=== PATIENT | male | born 1985 | race Caucasian/White ===

== ENCOUNTER 2023-04-05 16:40 | Emergency (ER) | payer SELFPAY ==
[~2023-04-05] VITALS: Ht 177.8 cm; Wt 113.4 kg
[2023-04-05 16:57] VITALS: BP 132/70; PULSE 66; RESP 18; TEMP 97; O2SAT 98
[2023-04-05] MEDS ORDERED: NACL 0.9% 1,000 ML IV ONE (17:20)
[2023-04-05] MEDS ORDERED: ONDANSETRON 4 MG/2 ML VIAL IVP ONE (17:20)
[2023-04-05] MEDS ORDERED: FAMOTIDINE 20 MG/2 ML VIAL IVP ONE (17:20)
[2023-04-05] MEDS ORDERED: KETOROLAC 30 MG/ML VIAL IVP ONE (17:20)
[2023-04-05 17:54] LABS: BASOPHILS % (AUTO) 0.4 % (0.0-2.0); EOSINOPHILS % (AUTO) 0.2 % (0.0-4.0); HEMATOCRIT 41.7 % (36-52); HEMOGLOBIN 13.7 g/dL (12.0-18.0); LYMPHOCYTES # (AUTO) 1.3 K/uL (2.0-11.5); LYMPHOCYTES % (AUTO) 11.8 % (20.5-51.1); MEAN CORPUSCULAR HEMOGLOBIN 27 pg (27-31); MEAN CORPUSCULAR HGB CONC 33 g/dL (33-37); MEAN CORPUSCULAR VOLUME 83.3 fL (80-94); MONOCYTES # (AUTO) 0.3 K/uL (0.8-1.0); MONOCYTES % (AUTO) 3.3 % (1.7-9.3); NEUTROPHILS % (AUTO) 84.3 % (42.2-75.2); PLATELET COUNT (AUTO) 275 K/uL (140-450); RED BLOOD CELL COUNT(AUTO) 5.01 MIL/uL (4.20-6.10); RED CELL DISTRIBUTION WIDTH 16.9 % (11.6-13.7); WHITE BLOOD COUNT (AUTO) 10.6 K/uL (4.8-10.8)
[2023-04-05 18:00] LABS: APPEARANCE,URINE CLEAR (CLEAR); BILIRUBIN,URINE NEGATIVE (NEGATIVE); BLOOD, URINE NEGATIVE (NEGATIVE); COLOR,URINE YELLOW (YELLOW); LEUKOCYTE ESTERASE ,URINE NEGATIVE (NEGATIVE); NITRITE, URINE NEGATIVE (NEGATIVE); PROTEIN,URINE TRACE (NEGATIVE); UGLUCOSE NEGATIVE (NEGATIVE); UROBILINOGEN,URINE 0.2 EU/dL (0.2 - 1)
[2023-04-05 18:03] LABS: ANION GAP 10.7 (8-16); CALCIUM 8.8 mg/dL (8.5-10.1); CARBON DIOXIDE 28.4 mmol/L (21-32); CREATININE 0.9 mg/dL (0.6-1.3); POTASSIUM 4.1 mmol/L (3.5-5.1)
[2023-04-05 18:05] LABS: BACTERIA,URINE 2+ /HPF (None Seen); HYALINE CASTS, URINE 0-10 /LPF (None Seen); MUCUS,URINE 2+ /LPF (None Seen); RBC,URINE 0-5 /HPF (0-5); SQUAMOUS EPITHELIAL CELL,UR 0-3 (FEW) /LPF (0-3 (FEW)); TRICHOMONAS,URINE None Seen /HPF (None Seen); WBC,URINE 0-5 /HPF (0-5); YEAST,URINE None Seen /HPF (None Seen)
[2023-04-05 18:09] LABS: ALBUMIN 3.5 g/dL (3.4-5.0); BILIRUBIN,DIRECT 0.1 mg/dL (0.0-0.3); TOTAL BILIRUBIN 0.4 mg/dL (0.0-1.0); TOTAL PROTEIN, SERUM 9.2 g/dL (6.4-8.2)
[2023-04-05] MEDS ORDERED: OMEP20EC11 PO (19:43)
[2023-04-05 20:00] VITALS: BP 132/70; PULSE 66; RESP 18; TEMP 97; O2SAT 98
[2023-04-06] MEDS ORDERED: FAMO-92 PO (12:13)
== END 2023-04-05 20:00 | disposition home or self-care (01) ==
LOC: MED 16:40
DX: K29.70 Gastritis, unspecified, without bleeding (principal); K76.0 Fatty (change of) liver, not elsewhere classified; Z98.890 Other specified postprocedural states
CPT/HCPCS: 36415; 76705; 80048; 80076; 81001; 83690; 85025; 96361; 96374; 96375; 99285; J1885; J2405; J3490; J7030; Q0092

== ENCOUNTER 2023-04-08 10:28 | Inpatient (IN) | payer MEDICAID, OTHER ==
[~2023-04-08] VITALS: Ht 170.2 cm; Wt 146.1 kg
[~2023-04-08 10:28] MED LIST: FAMO-92 PO; OMEP20EC11 PO
[2023-04-08 10:37] VITALS: BP 136/88; PULSE 131; RESP 20; TEMP 98; O2SAT 100
[2023-04-08] MEDS ORDERED: KETOROLAC 30 MG/ML VIAL IM ONE (11:45)
[2023-04-08 12:22] LABS: EOSINOPHILS % (AUTO) 0.2 % (0.0-4.0); HEMATOCRIT 42.3 % (36-52); HEMOGLOBIN 14.1 g/dL (12.0-18.0); LYMPHOCYTES # (AUTO) 0.4 K/uL (2.0-11.5); LYMPHOCYTES % (AUTO) 3.1 % (20.5-51.1); MEAN CORPUSCULAR HEMOGLOBIN 28 pg (27-31); MEAN CORPUSCULAR HGB CONC 33 g/dL (33-37); MEAN CORPUSCULAR VOLUME 83.5 fL (80-94); MONOCYTES # (AUTO) 0.3 K/uL (0.8-1.0); MONOCYTES % (AUTO) 2.3 % (1.7-9.3); NEUTROPHILS # (AUTO) 12.6 K/uL (1.8-7.7); NEUTROPHILS % (AUTO) 94.4 % (42.2-75.2); PLATELET COUNT (AUTO) 195 K/uL (140-450); RED BLOOD CELL COUNT(AUTO) 5.06 MIL/uL (4.20-6.10); RED CELL DISTRIBUTION WIDTH 16.9 % (11.6-13.7); WHITE BLOOD COUNT (AUTO) 13.3 K/uL (4.8-10.8)
[2023-04-08 12:27] LABS: BILIRUBIN,URINE 2+ (NEGATIVE); BLOOD, URINE TRACE-I (NEGATIVE); COLOR,URINE YELLOW (YELLOW); LEUKOCYTE ESTERASE ,URINE NEGATIVE (NEGATIVE); NITRITE, URINE POSITIVE (NEGATIVE); PH,URINE 5.5 (5.0-9.0); PROTEIN,URINE 3+ (NEGATIVE); UGLUCOSE TRACE (NEGATIVE)
[2023-04-08 12:32] LABS: APPEARANCE,URINE HAZY (CLEAR)
[2023-04-08 12:37] LABS: BACTERIA,URINE 2+ /HPF (None Seen); RBC,URINE 0-5 /HPF (0-5); SQUAMOUS EPITHELIAL CELL,UR 0-3 (FEW) /LPF (0-3 (FEW)); WBC,URINE 0-5 /HPF (0-5)
[2023-04-08 12:41] LABS: CALCIUM 8.6 mg/dL (8.5-10.1); CARBON DIOXIDE 23.3 mmol/L (21-32); CREATININE 1.8 mg/dL (0.6-1.3); HYALINE CASTS, URINE 0-10 /LPF (None Seen)
[2023-04-08 12:42] LABS: ICTOTEST POSITIVE (NEGATIVE)
[2023-04-08 12:51] LABS: LACTIC ACID 4.9 mmol/L (0.4-2.0)
[2023-04-08 12:52] LABS: POTASSIUM 2.3 mmol/L (3.5-5.1)
[2023-04-08] MEDS ORDERED: NACL 0.9% 2,000 ML IV ONE (12:55)
[2023-04-08 12:57] LABS: ALBUMIN 3.1 g/dL (3.4-5.0); BILIRUBIN,DIRECT 0.4 mg/dL (0.0-0.3); TOTAL BILIRUBIN 1.1 mg/dL (0.0-1.0); TOTAL PROTEIN, SERUM 9.7 g/dL (6.4-8.2)
[2023-04-08] MEDS ORDERED: POTASSIUM CHLORIDE 40 MEQ, LIDOCAINE 1% 25 MG in NACL 0.9% 250 ML IV ONE ×3 (13:20→21:05)
[2023-04-08] MEDS ORDERED: PIPERACILLIN/TAZOBACTAM 3.375 GM in DEXTROSE 5% 50 ML IV ONE (13:20)
[2023-04-08 13:51] LABS: FLU A ANTIGEN negative (NEGATIVE); FLU B ANTIGEN negative (NEGATIVE)
[2023-04-08] MEDS ORDERED: PIPERACILLIN/TAZOBACTAM 3.375 GM VIAL IV ONE ×2 (14:09→22:03)
[2023-04-08 14:10] LABS: INR 1.12 (0.8-1.2); PROTHROMBIN TIME 11.7 secs (10.8-13.4)
[2023-04-08] MEDS ORDERED: NACL 0.9% 1,000 ML IV ONE (14:20)
[2023-04-08] MEDS ORDERED: MAG SULF 2000 MG/WATER PREMIX 100 ML IV ONE (14:40)
[2023-04-08] MEDS: LEVOFLOXACIN 750 MG/D5W PREMIX 150 ML IV SCH (16:55)
[2023-04-08] MEDS ORDERED: ONDANSETRON 4 MG/2 ML VIAL IVP PRN (16:55)
[2023-04-08] MEDS ORDERED: POTASSIUM CHL 20 MEQ/NACL 0.9% 1,000 ML IV ONE ×2 (16:55→17:00)
[2023-04-08] MEDS ORDERED: NACL 0.9% 1,000 ML IV SCH (16:55)
[2023-04-08] MEDS ORDERED: ACETAMINOPHEN/CODEINE 300/30MG 1 TAB PO PRN (21:05)
[2023-04-08] MEDS ORDERED: POTASSIUM CHLORIDE 10 MEQ TABER PO ONE (21:05)
[2023-04-08] MEDS ORDERED: MORPHINE SULFATE 2 MG/ML SYR IVP PRN (21:05)
[2023-04-08 21:20] VITALS: PULSE 101; RESP 19; O2SAT 96
[2023-04-08] MEDS: PIPERACILLIN/TAZOBACTAM 3.375 GM in DEXTROSE 5% 50 ML IV SCH (22:12)
[2023-04-09] MEDS ORDERED: KCL 20 MEQ IN 100 mL PREMIX 200 ML IV ONE (02:40)
[2023-04-09] MEDS ORDERED: POTASSIUM CHLORIDE 10 MEQ TABER PO ONE (02:50)
[2023-04-09 04:00] VITALS: BP 108/55; PULSE 78; RESP 20; TEMP 98.4; O2SAT 96
[2023-04-09] MEDS ORDERED: PIPERACILLIN/TAZOBACTAM 3.375 GM VIAL IV ONE ×2 (05:02→12:00)
[2023-04-09] MEDS: PIPERACILLIN/TAZOBACTAM 3.375 GM in DEXTROSE 5% 50 ML IV SCH ×4 (05:42→20:01)
[2023-04-09 06:25] LABS: BASOPHILS % (AUTO) 0.1 % (0.0-2.0); HEMATOCRIT 33.5 % (36-52); HEMOGLOBIN 11.3 g/dL (12.0-18.0); LYMPHOCYTES # (AUTO) 0.5 K/uL (2.0-11.5); LYMPHOCYTES % (AUTO) 5.4 % (20.5-51.1); MEAN CORPUSCULAR HEMOGLOBIN 28 pg (27-31); MEAN CORPUSCULAR HGB CONC 34 g/dL (33-37); MEAN CORPUSCULAR VOLUME 82.6 fL (80-94); MONOCYTES # (AUTO) 0.9 K/uL (0.8-1.0); MONOCYTES % (AUTO) 9.6 % (1.7-9.3); NEUTROPHILS # (AUTO) 8.4 K/uL (1.8-7.7); NEUTROPHILS % (AUTO) 84.9 % (42.2-75.2); PLATELET COUNT (AUTO) 135 K/uL (140-450); RED BLOOD CELL COUNT(AUTO) 4.06 MIL/uL (4.20-6.10); RED CELL DISTRIBUTION WIDTH 16.8 % (11.6-13.7); WHITE BLOOD COUNT (AUTO) 9.9 K/uL (4.8-10.8)
[2023-04-09 06:47] LABS: ALBUMIN 2.1 g/dL (3.4-5.0); ANION GAP 12.9 (8-16); CALCIUM 7.5 mg/dL (8.5-10.1); CARBON DIOXIDE 23.4 mmol/L (21-32); CREATININE 1.2 mg/dL (0.6-1.3); POTASSIUM 3.3 mmol/L (3.5-5.1); TOTAL BILIRUBIN 0.4 mg/dL (0.0-1.0); TOTAL PROTEIN, SERUM 6.9 g/dL (6.4-8.2)
[2023-04-09 08:38] VITALS: BP 119/56; PULSE 91; RESP 19; TEMP 98.6; O2SAT 96
[2023-04-09] MEDS ORDERED: BUPIVACAINE-MPF 0.25% 30 ML VIAL INJ ONE (10:59)
[2023-04-09] MEDS ORDERED: LIDOCAINE/EPI MPF 1%1:200000 30 ML VIAL INJ ONE (10:59)
[2023-04-09] MEDS ORDERED: ceFAZolin 2,000 MG VIAL ONE (10:59)
[2023-04-09] MEDS ORDERED: ONDANSETRON 4 MG/2 ML VIAL IVP ONE (11:38)
[2023-04-09] MEDS ORDERED: SEVOFLURANE 250 ML BTL INH ONE (11:38)
[2023-04-09] MEDS ORDERED: ACETAMINOPHEN 100 ML IV ONE (12:07)
[2023-04-09] MEDS ORDERED: MIDAZOLAM 2 MG/2 ML VIAL ONE (12:10)
[2023-04-09] MEDS ORDERED: LIDOCAINE 2% 100 MG/5 ML SYR IVP ONE (12:11)
[2023-04-09] MEDS ORDERED: fentaNYL citrate 0.05 MG/ML VIAL ONE (12:11)
[2023-04-09] MEDS ORDERED: PROPOFOL 200 MG/20 ML VIAL IV ONE ×2 (12:11→12:34)
[2023-04-09] MEDS ORDERED: ROCURONIUM 50 MG/5 ML VIAL IV ONE (12:11)
[2023-04-09] MEDS ORDERED: SUCCINYLCHOLINE CHLORIDE 200 MG/10 ML VIAL IVP ONE (12:11)
[2023-04-09] MEDS ORDERED: DEXAMETHASONE 4 MG/ML VIAL ONE ×2 (12:24)
[2023-04-09] MEDS ORDERED: GLYCOPYRROLATE 0.2 MG/ML VIAL ONE ×4 (14:04)
[2023-04-09] MEDS ORDERED: NEOSTIGMINE 1:1000 10 MG/10 ML VIAL ONE (14:06)
[2023-04-09] MEDS ORDERED: fentaNYL citrate 0.05 MG/ML VIAL IVP PRN (14:40)
[2023-04-09] MEDS ORDERED: HYDROmorphone 1 MG/ML AMP IVP PRN (14:40)
[2023-04-09] MEDS ORDERED: HYDROmorphone PFS 2 MG/ML SYR ONE (14:52)
[2023-04-09] MEDS: LEVOFLOXACIN 750 MG/D5W PREMIX 150 ML IV SCH (16:06)
[2023-04-09 16:50] VITALS: BP 107/64; PULSE 115; RESP 19; TEMP 97.4; O2SAT 98
[2023-04-09 20:00] VITALS: BP 109/50; PULSE 119; RESP 19; TEMP 98.6; O2SAT 96
[2023-04-09] MEDS ORDERED: MORPHINE SULFATE 2 MG/ML SYR IVP PRN (20:05)
[2023-04-09] MEDS: ACETAMINOPHEN 325 MG TAB PO PRN (20:07)
[2023-04-09] MEDS ORDERED: MORPHINE SULFATE 2 MG/ML SYR IVP ONE (20:10)
[2023-04-09] MEDS ORDERED: PHENAZOPYRIDINE 100 MG TAB PO ONE (21:58)
[2023-04-10] MEDS: HYDROcodone/APAP 5/325 MG 1 TAB TAB PO PRN ×3 (03:13→20:53)
[2023-04-10 04:00] VITALS: BP 125/79; PULSE 109; RESP 21; TEMP 98.8; O2SAT 96
[2023-04-10] MEDS: PIPERACILLIN/TAZOBACTAM 3.375 GM in DEXTROSE 5% 50 ML IV SCH ×3 (04:50→21:46)
[2023-04-10 06:44] LABS: EOSINOPHILS % (AUTO) 0.1 % (0.0-4.0); HEMATOCRIT 25.2 % (36-52); HEMOGLOBIN 8.5 g/dL (12.0-18.0); LYMPHOCYTES # (AUTO) 0.7 K/uL (2.0-11.5); LYMPHOCYTES % (AUTO) 4.2 % (20.5-51.1); MEAN CORPUSCULAR HEMOGLOBIN 28 pg (27-31); MEAN CORPUSCULAR HGB CONC 34 g/dL (33-37); MEAN CORPUSCULAR VOLUME 82.6 fL (80-94); MONOCYTES # (AUTO) 1.3 K/uL (0.8-1.0); MONOCYTES % (AUTO) 8.2 % (1.7-9.3); NEUTROPHILS # (AUTO) 14.2 K/uL (1.8-7.7); NEUTROPHILS % (AUTO) 87.5 % (42.2-75.2); PLATELET COUNT (AUTO) 184 K/uL (140-450); RED BLOOD CELL COUNT(AUTO) 3.05 MIL/uL (4.20-6.10); RED CELL DISTRIBUTION WIDTH 17.5 % (11.6-13.7); WHITE BLOOD COUNT (AUTO) 16.2 K/uL (4.8-10.8)
[2023-04-10 07:10] LABS: ANION GAP 15.1 (8-16); CALCIUM 7.8 mg/dL (8.5-10.1); CARBON DIOXIDE 22.7 mmol/L (21-32); CREATININE 1.2 mg/dL (0.6-1.3); POTASSIUM 3.8 mmol/L (3.5-5.1); TOTAL BILIRUBIN 0.4 mg/dL (0.0-1.0)
[2023-04-10] MEDS ORDERED: NACL 0.9% 500 ML IV SCH ×2 (08:30→09:00)
[2023-04-10] MEDS: PHENAZOPYRIDINE 100 MG TAB PO SCH ×3 (08:56→16:48)
[2023-04-10] MEDS: NACL 0.9% 1,000 ML IV SCH ×2 (08:57→21:50)
[2023-04-10 09:02] VITALS: PULSE 92; RESP 19; O2SAT 94
[2023-04-10 09:03] VITALS: BP 107/56; PULSE 92; RESP 19; TEMP 98.3; O2SAT 94
[2023-04-10 16:18] VITALS: BP 106/62; PULSE 92; RESP 18; TEMP 97.6; O2SAT 96
[2023-04-10] MEDS: LEVOFLOXACIN 750 MG/D5W PREMIX 150 ML IV SCH (16:40)
[2023-04-10 20:00] VITALS: BP 117/69; PULSE 88; PULSE 92; RESP 18; TEMP 98.8; O2SAT 93; O2SAT 96
[2023-04-11] MEDS: NACL 0.9% 1,000 ML IV SCH ×2 (00:12→11:10)
[2023-04-11 04:00] VITALS: BP 109/63; PULSE 83; RESP 18; TEMP 97.9; O2SAT 94
[2023-04-11] MEDS: PIPERACILLIN/TAZOBACTAM 3.375 GM in DEXTROSE 5% 50 ML IV SCH ×2 (05:00→14:42)
[2023-04-11] MEDS: HYDROcodone/APAP 5/325 MG 1 TAB TAB PO PRN ×3 (05:01→20:49)
[2023-04-11 07:11] LABS: LYMPHOCYTES % (AUTO) 6.5 % (20.5-51.1); MEAN CORPUSCULAR HEMOGLOBIN 27 pg (27-31); MEAN CORPUSCULAR HGB CONC 33 g/dL (33-37); MEAN CORPUSCULAR VOLUME 82.7 fL (80-94); MONOCYTES # (AUTO) 1.5 K/uL (0.8-1.0); MONOCYTES % (AUTO) 9.8 % (1.7-9.3); NEUTROPHILS # (AUTO) 12.9 K/uL (1.8-7.7); NEUTROPHILS % (AUTO) 83.7 % (42.2-75.2); PLATELET COUNT (AUTO) 188 K/uL (140-450); RED BLOOD CELL COUNT(AUTO) 2.39 MIL/uL (4.20-6.10); RED CELL DISTRIBUTION WIDTH 18.1 % (11.6-13.7); WHITE BLOOD COUNT (AUTO) 15.4 K/uL (4.8-10.8)
[2023-04-11 07:13] LABS: ANION GAP 8.8 (8-16); CALCIUM 7.8 mg/dL (8.5-10.1); CARBON DIOXIDE 28.9 mmol/L (21-32); CREATININE 0.8 mg/dL (0.6-1.3); POTASSIUM 3.7 mmol/L (3.5-5.1)
[2023-04-11 07:29] LABS: ALBUMIN 1.9 g/dL (3.4-5.0); BILIRUBIN,DIRECT 0.1 mg/dL (0.0-0.3); TOTAL BILIRUBIN 0.2 mg/dL (0.0-1.0); TOTAL PROTEIN, SERUM 6.6 g/dL (6.4-8.2)
[2023-04-11 07:40] LABS: HEMATOCRIT 19.8 % (36-52); HEMOGLOBIN 6.5 g/dL (12.0-18.0)
[2023-04-11 08:00] VITALS: PULSE 76; RESP 20; O2SAT 96
[2023-04-11] MEDS: PHENAZOPYRIDINE 100 MG TAB PO SCH ×3 (08:51→18:11)
[2023-04-11] MEDS ORDERED: ACET-1182 PO (12:15)
[2023-04-11] MEDS ORDERED: CIPR500T4 PO (12:15)
[2023-04-11 16:00] VITALS: BP 118/65; PULSE 81; RESP 20; TEMP 98.3; O2SAT 97
[2023-04-11] MEDS: LEVOFLOXACIN 750 MG/D5W PREMIX 150 ML IV SCH (16:56)
[2023-04-11 20:00] VITALS: BP 121/70; PULSE 84; RESP 16; TEMP 97.8; O2SAT 96; O2SAT 97
[2023-04-12] MEDS ORDERED: cefTRIAXone 1,000 MG VIAL ONE (00:02)
[2023-04-12] MEDS: NACL 0.9% 1,000 ML IV SCH ×2 (05:43→13:50)
[2023-04-12 06:48] LABS: EOSINOPHILS % (AUTO) 0.2 % (0.0-4.0); HEMATOCRIT 21.3 % (36-52); HEMOGLOBIN 7.1 g/dL (12.0-18.0); LYMPHOCYTES # (AUTO) 1.3 K/uL (2.0-11.5); LYMPHOCYTES % (AUTO) 10.9 % (20.5-51.1); MEAN CORPUSCULAR HEMOGLOBIN 28 pg (27-31); MEAN CORPUSCULAR HGB CONC 34 g/dL (33-37); MEAN CORPUSCULAR VOLUME 83.4 fL (80-94); MONOCYTES # (AUTO) 1.5 K/uL (0.8-1.0); MONOCYTES % (AUTO) 11.9 % (1.7-9.3); NEUTROPHILS # (AUTO) 9.5 K/uL (1.8-7.7); PLATELET COUNT (AUTO) 205 K/uL (140-450); RED BLOOD CELL COUNT(AUTO) 2.55 MIL/uL (4.20-6.10); WHITE BLOOD COUNT (AUTO) 12.3 K/uL (4.8-10.8)
[2023-04-12 07:02] LABS: ANION GAP 9.6 (8-16); CALCIUM 7.4 mg/dL (8.5-10.1); CARBON DIOXIDE 29.6 mmol/L (21-32); CREATININE 0.9 mg/dL (0.6-1.3); POTASSIUM 3.2 mmol/L (3.5-5.1)
[2023-04-12 07:05] LABS: ALBUMIN 1.9 g/dL (3.4-5.0); BILIRUBIN,DIRECT 0.1 mg/dL (0.0-0.3); TOTAL BILIRUBIN 0.3 mg/dL (0.0-1.0); TOTAL PROTEIN, SERUM 6.6 g/dL (6.4-8.2)
[2023-04-12] MEDS ORDERED: POTASSIUM CHLORIDE 10 MEQ TABER PO PRN (07:55)
[2023-04-12 08:00] VITALS: BP 125/71; PULSE 78; RESP 17; TEMP 98.2; O2SAT 96
[2023-04-12] MEDS: PHENAZOPYRIDINE 100 MG TAB PO SCH ×3 (09:22→17:42)
[2023-04-12] MEDS: metroNIDAZOLE 500 MG/NS PREMIX 100 ML IV SCH ×2 (13:41→21:20)
[2023-04-12 16:00] VITALS: BP 123/67; PULSE 91; RESP 17; TEMP 99.3; O2SAT 96
[2023-04-12] MEDS: HYDROcodone/APAP 5/325 MG 1 TAB TAB PO PRN (17:45)
[2023-04-12 20:00] VITALS: BP 98/77; PULSE 101; PULSE 111; RESP 17; TEMP 98.2; O2SAT 96
[2023-04-13] MEDS: HYDROcodone/APAP 5/325 MG 1 TAB TAB PO PRN ×2 (00:27→18:13)
[2023-04-13] MEDS: NACL 0.9% 1,000 ML IV SCH ×2 (03:38→16:30)
[2023-04-13 04:22] VITALS: BP 103/60; PULSE 90; RESP 17; TEMP 98.7; O2SAT 96
[2023-04-13] MEDS: metroNIDAZOLE 500 MG/NS PREMIX 100 ML IV SCH ×3 (04:55→21:33)
[2023-04-13 07:02] LABS: ANION GAP 12.1 (8-16); CALCIUM 7.7 mg/dL (8.5-10.1); CARBON DIOXIDE 28.1 mmol/L (21-32); CREATININE 0.9 mg/dL (0.6-1.3); POTASSIUM 3.2 mmol/L (3.5-5.1)
[2023-04-13 07:19] LABS: HEMATOCRIT 23.6 % (36-52); MEAN CORPUSCULAR HEMOGLOBIN 28 pg (27-31); MEAN CORPUSCULAR HGB CONC 34 g/dL (33-37); MEAN CORPUSCULAR VOLUME 83.3 fL (80-94); PLATELET COUNT (AUTO) 358 K/uL (140-450); RED BLOOD CELL COUNT(AUTO) 2.84 MIL/uL (4.20-6.10); RED CELL DISTRIBUTION WIDTH 17.1 % (11.6-13.7); WHITE BLOOD COUNT (AUTO) 15.4 K/uL (4.8-10.8)
[2023-04-13 07:55] LABS: EOSINOPHILS % (MANUAL) 2 % (0-4); MONOCYTES % (MANUAL) 12 % (5-12)
[2023-04-13 07:56] LABS: LYMPHOCYTES % (MANUAL) 17 % (20-46)
[2023-04-13 08:00] VITALS: PULSE 97; RESP 18; TEMP 98.6; O2SAT 98
[2023-04-13 16:00] VITALS: BP 121/65; PULSE 105; RESP 18; TEMP 99; O2SAT 97
[2023-04-13 16:53] LABS: ALBUMIN 2.2 g/dL (3.4-5.0); BILIRUBIN,DIRECT 0.1 mg/dL (0.0-0.3); TOTAL BILIRUBIN 0.4 mg/dL (0.0-1.0); TOTAL PROTEIN, SERUM 6.9 g/dL (6.4-8.2)
[2023-04-13] MEDS ORDERED: POTASSIUM CHLORIDE 10 MEQ TABER PO ONE ×2 (17:40→21:31)
[2023-04-13 20:00] VITALS: BP 108/60; PULSE 111; PULSE 98; RESP 17; TEMP 99.2; O2SAT 96
[2023-04-14 04:00] VITALS: BP 129/61; PULSE 108; RESP 18; TEMP 99; O2SAT 97
[2023-04-14] MEDS: HYDROcodone/APAP 5/325 MG 1 TAB TAB PO PRN ×3 (04:21→20:09)
[2023-04-14] MEDS: metroNIDAZOLE 500 MG/NS PREMIX 100 ML IV SCH ×2 (04:22→13:00)
[2023-04-14] MEDS: NACL 0.9% 1,000 ML IV SCH ×2 (04:22→19:10)
[2023-04-14 06:44] LABS: BASOPHILS % (AUTO) 0.1 % (0.0-2.0); EOSINOPHILS # (AUTO) 0.1 K/uL (0-0.4); EOSINOPHILS % (AUTO) 0.6 % (0.0-4.0); LYMPHOCYTES # (AUTO) 1.4 K/uL (2.0-11.5); LYMPHOCYTES % (AUTO) 10.2 % (20.5-51.1); MEAN CORPUSCULAR HEMOGLOBIN 28 pg (27-31); MEAN CORPUSCULAR HGB CONC 34 g/dL (33-37); MEAN CORPUSCULAR VOLUME 82.7 fL (80-94); MONOCYTES # (AUTO) 1.4 K/uL (0.8-1.0); MONOCYTES % (AUTO) 10.2 % (1.7-9.3); NEUTROPHILS % (AUTO) 78.9 % (42.2-75.2); PLATELET COUNT (AUTO) 373 K/uL (140-450); RED BLOOD CELL COUNT(AUTO) 2.54 MIL/uL (4.20-6.10); RED CELL DISTRIBUTION WIDTH 17.4 % (11.6-13.7); WHITE BLOOD COUNT (AUTO) 13.9 K/uL (4.8-10.8)
[2023-04-14 07:04] LABS: ANION GAP 11.6 (8-16); CALCIUM 7.5 mg/dL (8.5-10.1); CARBON DIOXIDE 29.3 mmol/L (21-32); CREATININE 0.9 mg/dL (0.6-1.3)
[2023-04-14 07:10] LABS: POTASSIUM 2.9 mmol/L (3.5-5.1)
[2023-04-14 07:29] LABS: HEMOGLOBIN 7.1 g/dL (12.0-18.0)
[2023-04-14 08:00] VITALS: PULSE 98; RESP 18; TEMP 99.2; O2SAT 98
[2023-04-14] MEDS ORDERED: POTASSIUM CHLORIDE 40 MEQ, LIDOCAINE 1% 25 MG in NACL 0.9% 250 ML IV SCH (08:00)
[2023-04-14 16:00] VITALS: BP 118/83; PULSE 102; RESP 18; TEMP 99; O2SAT 97
[2023-04-14 20:00] VITALS: BP 126/70; PULSE 114; RESP 18; TEMP 102.9; O2SAT 94
[2023-04-14] MEDS: ACETAMINOPHEN 325 MG TAB PO PRN (22:13)
[2023-04-15] MEDS: HYDROcodone/APAP 5/325 MG 1 TAB TAB PO PRN (02:06)
[2023-04-15 03:56] LABS: BASOPHILS # (AUTO) 0.1 K/uL (0.00-0.22); BASOPHILS % (AUTO) 0.4 % (0.0-2.0); EOSINOPHILS # (AUTO) 0.1 K/uL (0-0.4); EOSINOPHILS % (AUTO) 0.8 % (0.0-4.0); HEMATOCRIT 24.3 % (36-52); HEMOGLOBIN 8.2 g/dL (12.0-18.0); LYMPHOCYTES # (AUTO) 1.4 K/uL (2.0-11.5); LYMPHOCYTES % (AUTO) 10.3 % (20.5-51.1); MEAN CORPUSCULAR HEMOGLOBIN 28 pg (27-31); MEAN CORPUSCULAR HGB CONC 34 g/dL (33-37); MEAN CORPUSCULAR VOLUME 83.6 fL (80-94); MONOCYTES # (AUTO) 1.2 K/uL (0.8-1.0); MONOCYTES % (AUTO) 8.9 % (1.7-9.3); NEUTROPHILS % (AUTO) 79.6 % (42.2-75.2); PLATELET COUNT (AUTO) 431 K/uL (140-450); RED BLOOD CELL COUNT(AUTO) 2.91 MIL/uL (4.20-6.10); RED CELL DISTRIBUTION WIDTH 17.3 % (11.6-13.7); WHITE BLOOD COUNT (AUTO) 13.8 K/uL (4.8-10.8)
[2023-04-15 04:00] VITALS: BP 130/95; PULSE 92; RESP 17; TEMP 98.4; O2SAT 93
[2023-04-15 04:12] LABS: ANION GAP 10.9 (8-16); CALCIUM 7.7 mg/dL (8.5-10.1); CARBON DIOXIDE 30.3 mmol/L (21-32); CREATININE 0.8 mg/dL (0.6-1.3); POTASSIUM 3.2 mmol/L (3.5-5.1)
[2023-04-15] MEDS: metroNIDAZOLE 500 MG/NS PREMIX 100 ML IV SCH (04:23)
[2023-04-15 08:00] VITALS: PULSE 98; RESP 19; TEMP 97.6; O2SAT 97
[2023-04-15] MEDS: NACL 0.9% 1,000 ML IV SCH ×2 (08:30→20:16)
[2023-04-15] MEDS ORDERED: DOCUSATE SODIUM 100 MG GELCAP PO PRN (09:05)
[2023-04-15] MEDS ORDERED: MAG SULF 2000 MG/WATER PREMIX 50 ML IV PRN (09:05)
[2023-04-15] MEDS ORDERED: POTASSIUM CHLORIDE 10 MEQ TABER PO PRN (09:05)
[2023-04-15 10:35] VITALS: O2SAT 97
[2023-04-15] MEDS ORDERED: SULF-58 PO (12:44)
[2023-04-15] MEDS ORDERED: METR-435 PO (12:44)
[2023-04-15 16:00] VITALS: BP 138/79; PULSE 100; RESP 18; TEMP 99.1; O2SAT 96
[2023-04-15 20:00] VITALS: BP 113/63; PULSE 114; RESP 18; RESP 19; TEMP 100.4; O2SAT 97; O2SAT 99
[2023-04-15] MEDS: MORPHINE SULFATE 2 MG/ML SYR IVP PRN (20:16)
[2023-04-15] MEDS: MEROPENEM 1,000 MG in NACL 0.9% 50 ML IV SCH (20:16)
[2023-04-15] MEDS: ACETAMINOPHEN 325 MG TAB PO PRN (20:17)
[2023-04-16 04:00] VITALS: BP 110/50; PULSE 108; RESP 19; TEMP 100.5; O2SAT 92
[2023-04-16] MEDS: ACETAMINOPHEN 325 MG TAB PO PRN (04:05)
[2023-04-16] MEDS: MORPHINE SULFATE 2 MG/ML SYR IVP PRN ×3 (04:05→20:52)
[2023-04-16] MEDS: MEROPENEM 1,000 MG in NACL 0.9% 50 ML IV SCH ×3 (04:05→20:51)
[2023-04-16 07:15] LABS: BASOPHILS % (AUTO) 0.2 % (0.0-2.0); EOSINOPHILS % (AUTO) 0.3 % (0.0-4.0); LYMPHOCYTES # (AUTO) 1.4 K/uL (2.0-11.5); LYMPHOCYTES % (AUTO) 10.2 % (20.5-51.1); MEAN CORPUSCULAR HEMOGLOBIN 28 pg (27-31); MEAN CORPUSCULAR HGB CONC 34 g/dL (33-37); MEAN CORPUSCULAR VOLUME 83.9 fL (80-94); MONOCYTES # (AUTO) 1.2 K/uL (0.8-1.0); MONOCYTES % (AUTO) 8.3 % (1.7-9.3); NEUTROPHILS # (AUTO) 11.3 K/uL (1.8-7.7); PLATELET COUNT (AUTO) 508 K/uL (140-450); RED BLOOD CELL COUNT(AUTO) 2.86 MIL/uL (4.20-6.10); RED CELL DISTRIBUTION WIDTH 17.1 % (11.6-13.7); WHITE BLOOD COUNT (AUTO) 13.9 K/uL (4.8-10.8)
[2023-04-16 07:43] LABS: ANION GAP 10.2 (8-16); CALCIUM 8.1 mg/dL (8.5-10.1); CARBON DIOXIDE 29.5 mmol/L (21-32); CREATININE 0.8 mg/dL (0.6-1.3); POTASSIUM 3.7 mmol/L (3.5-5.1)
[2023-04-16 08:00] VITALS: BP 133/60; PULSE 86; RESP 19; TEMP 98.7; O2SAT 96
[2023-04-16] MEDS: NACL 0.9% 1,000 ML IV SCH (13:09)
[2023-04-16 16:00] VITALS: BP 111/55; PULSE 108; RESP 19; TEMP 99.2; O2SAT 96
[2023-04-16] MEDS: HYDROcodone/APAP 5/325 MG 1 TAB TAB PO PRN (16:18)
[2023-04-16 20:00] VITALS: BP 106/61; PULSE 105; RESP 18; RESP 19; TEMP 99.5; O2SAT 97; O2SAT 99
[2023-04-17] MEDS: NACL 0.9% 1,000 ML IV SCH ×2 (00:30→17:00)
[2023-04-17] MEDS: MEROPENEM 1,000 MG in NACL 0.9% 50 ML IV SCH ×3 (04:35→21:25)
[2023-04-17 08:00] VITALS: BP 118/61; PULSE 97; RESP 19; TEMP 97.3; O2SAT 92
[2023-04-17 09:25] LABS: BASOPHILS % (AUTO) 0.3 % (0.0-2.0); EOSINOPHILS % (AUTO) 0.3 % (0.0-4.0); HEMATOCRIT 24.3 % (36-52); HEMOGLOBIN 8.1 g/dL (12.0-18.0); LYMPHOCYTES # (AUTO) 1.6 K/uL (2.0-11.5); MEAN CORPUSCULAR HEMOGLOBIN 28 pg (27-31); MEAN CORPUSCULAR HGB CONC 33 g/dL (33-37); MEAN CORPUSCULAR VOLUME 83.7 fL (80-94); MONOCYTES # (AUTO) 1.3 K/uL (0.8-1.0); MONOCYTES % (AUTO) 8.9 % (1.7-9.3); NEUTROPHILS # (AUTO) 11.8 K/uL (1.8-7.7); NEUTROPHILS % (AUTO) 79.5 % (42.2-75.2); PLATELET COUNT (AUTO) 562 K/uL (140-450); RED BLOOD CELL COUNT(AUTO) 2.91 MIL/uL (4.20-6.10); RED CELL DISTRIBUTION WIDTH 17.6 % (11.6-13.7); WHITE BLOOD COUNT (AUTO) 14.9 K/uL (4.8-10.8)
[2023-04-17 09:35] LABS: ALBUMIN 1.9 g/dL (3.4-5.0); ANION GAP 11.4 (8-16); CALCIUM 7.6 mg/dL (8.5-10.1); CARBON DIOXIDE 27.4 mmol/L (21-32); CREATININE 0.9 mg/dL (0.6-1.3); POTASSIUM 3.8 mmol/L (3.5-5.1); TOTAL BILIRUBIN 0.9 mg/dL (0.0-1.0); TOTAL PROTEIN, SERUM 7.7 g/dL (6.4-8.2)
[2023-04-17 09:43] LABS: INR 1.13 (0.8-1.2); PARTIAL THROMBOPLASTIN TIME 26.7 secs (22-35.6); PROTHROMBIN TIME 11.8 secs (10.8-13.4)
[2023-04-17] MEDS: MORPHINE SULFATE 2 MG/ML SYR IVP PRN ×2 (12:39→21:27)
[2023-04-17] MEDS ORDERED: FLUMAZENIL 0.5 MG/5 ML VIAL IVP ONE (13:13)
[2023-04-17] MEDS ORDERED: MIDAZOLAM 5 MG/5 ML VIAL ONE (13:14)
[2023-04-17] MEDS ORDERED: NALOXONE 0.4 MG/ML VIAL ONE (13:14)
[2023-04-17] MEDS ORDERED: fentaNYL citrate 0.05 MG/ML VIAL ONE (13:14)
[2023-04-17] MEDS ORDERED: LIDOCAINE 1% 500 MG/50 ML VIAL ONE (13:49)
[2023-04-17 16:00] VITALS: BP 111/52; PULSE 109; RESP 20; TEMP 98.6; O2SAT 95
[2023-04-17 20:00] VITALS: BP 116/51; PULSE 110; RESP 19; TEMP 100.8; O2SAT 97
[2023-04-17] MEDS: ACETAMINOPHEN 325 MG TAB PO PRN (21:25)
[2023-04-18] MEDS: NACL 0.9% 1,000 ML IV SCH ×2 (03:10→16:33)
[2023-04-18 05:09] VITALS: BP 108/64; PULSE 100; RESP 19; TEMP 98.3; O2SAT 97
[2023-04-18] MEDS: MEROPENEM 1,000 MG in NACL 0.9% 50 ML IV SCH ×3 (05:22→21:14)
[2023-04-18 06:59] LABS: BASOPHILS % (AUTO) 0.3 % (0.0-2.0); EOSINOPHILS # (AUTO) 0.1 K/uL (0-0.4); EOSINOPHILS % (AUTO) 0.5 % (0.0-4.0); HEMATOCRIT 24.1 % (36-52); LYMPHOCYTES # (AUTO) 1.3 K/uL (2.0-11.5); LYMPHOCYTES % (AUTO) 10.9 % (20.5-51.1); MEAN CORPUSCULAR HEMOGLOBIN 28 pg (27-31); MEAN CORPUSCULAR HGB CONC 33 g/dL (33-37); MEAN CORPUSCULAR VOLUME 83.6 fL (80-94); MONOCYTES # (AUTO) 1.1 K/uL (0.8-1.0); MONOCYTES % (AUTO) 9.5 % (1.7-9.3); NEUTROPHILS # (AUTO) 9.6 K/uL (1.8-7.7); NEUTROPHILS % (AUTO) 78.8 % (42.2-75.2); PLATELET COUNT (AUTO) 590 K/uL (140-450); RED BLOOD CELL COUNT(AUTO) 2.88 MIL/uL (4.20-6.10); RED CELL DISTRIBUTION WIDTH 17.2 % (11.6-13.7); WHITE BLOOD COUNT (AUTO) 12.1 K/uL (4.8-10.8)
[2023-04-18 07:09] LABS: ALBUMIN 1.9 g/dL (3.4-5.0); ANION GAP 10.3 (8-16); CALCIUM 7.9 mg/dL (8.5-10.1); CARBON DIOXIDE 27.8 mmol/L (21-32); CREATININE 0.9 mg/dL (0.6-1.3); POTASSIUM 4.1 mmol/L (3.5-5.1); TOTAL BILIRUBIN 0.9 mg/dL (0.0-1.0); TOTAL PROTEIN, SERUM 8.1 g/dL (6.4-8.2)
[2023-04-18 08:00] VITALS: PULSE 92; RESP 18; TEMP 100.8; O2SAT 96
[2023-04-18 16:00] VITALS: BP 127/66; PULSE 99; RESP 18; TEMP 98.8; O2SAT 96
[2023-04-18 20:00] VITALS: BP 128/66; PULSE 89; RESP 16; RESP 18; TEMP 98.8; TEMP 99.4; O2SAT 97
[2023-04-18] MEDS: MORPHINE SULFATE 2 MG/ML SYR IVP PRN (21:07)
[2023-04-18] MEDS: ONDANSETRON 4 MG/2 ML VIAL IVP PRN (21:14)
[2023-04-18] MEDS: ACETAMINOPHEN 325 MG TAB PO PRN (21:15)
[2023-04-19] MEDS: MEROPENEM 1,000 MG in NACL 0.9% 50 ML IV SCH ×3 (05:28→20:07)
[2023-04-19] MEDS: NACL 0.9% 1,000 ML IV SCH ×2 (05:50→19:10)
[2023-04-19] MEDS: ONDANSETRON 4 MG/2 ML VIAL IVP PRN (05:56)
[2023-04-19] MEDS: MORPHINE SULFATE 2 MG/ML SYR IVP PRN ×2 (05:56→21:06)
[2023-04-19 06:43] LABS: BASOPHILS # (AUTO) 0.1 K/uL (0.00-0.22); BASOPHILS % (AUTO) 0.5 % (0.0-2.0); EOSINOPHILS # (AUTO) 0.1 K/uL (0-0.4); EOSINOPHILS % (AUTO) 0.6 % (0.0-4.0); HEMATOCRIT 25.2 % (36-52); HEMOGLOBIN 8.3 g/dL (12.0-18.0); LYMPHOCYTES # (AUTO) 1.6 K/uL (2.0-11.5); LYMPHOCYTES % (AUTO) 13.2 % (20.5-51.1); MEAN CORPUSCULAR HEMOGLOBIN 28 pg (27-31); MEAN CORPUSCULAR HGB CONC 33 g/dL (33-37); MEAN CORPUSCULAR VOLUME 83.7 fL (80-94); MONOCYTES # (AUTO) 1.2 K/uL (0.8-1.0); MONOCYTES % (AUTO) 10.3 % (1.7-9.3); NEUTROPHILS % (AUTO) 75.4 % (42.2-75.2); PLATELET COUNT (AUTO) 605 K/uL (140-450); RED BLOOD CELL COUNT(AUTO) 3.01 MIL/uL (4.20-6.10); RED CELL DISTRIBUTION WIDTH 17.4 % (11.6-13.7)
[2023-04-19 07:38] LABS: ALBUMIN 1.9 g/dL (3.4-5.0); ANION GAP 11.2 (8-16); CALCIUM 8.2 mg/dL (8.5-10.1); CARBON DIOXIDE 27.5 mmol/L (21-32); CREATININE 0.9 mg/dL (0.6-1.3); POTASSIUM 4.7 mmol/L (3.5-5.1); TOTAL BILIRUBIN 0.9 mg/dL (0.0-1.0); TOTAL PROTEIN, SERUM 8.5 g/dL (6.4-8.2)
[2023-04-19 08:00] VITALS: BP 118/50; PULSE 90; RESP 19; TEMP 99.3; O2SAT 93; O2SAT 97
[2023-04-19 16:00] VITALS: BP 102/54; PULSE 117; RESP 21; TEMP 100.8; O2SAT 96
[2023-04-19] MEDS: ACETAMINOPHEN 325 MG TAB PO PRN (16:18)
[2023-04-19 20:00] VITALS: BP 110/55; PULSE 102; RESP 18; RESP 19; TEMP 98.4; TEMP 98.9; O2SAT 96
[2023-04-19] MEDS ORDERED: NEOMYCIN/POLYMYXIN/BACITRACIN OIN 15 GM TUBE TP SCH (21:00)
[2023-04-19] MEDS ORDERED: NEOMYCIN/POLYMYXIN/BACITRACIN 0.9 GM/1 PKT TP ONE (21:23)
[2023-04-20] MEDS ORDERED: NEOMYCIN/POLYMYXIN/BACITRACIN OPTH OINT 3.5 GM TUBE OP SCH (01:00)
[2023-04-20] MEDS: ACETAMINOPHEN 325 MG TAB PO PRN (01:11)
[2023-04-20 04:00] VITALS: BP 112/67; PULSE 88; RESP 18; TEMP 98.1; O2SAT 97
[2023-04-20] MEDS: MEROPENEM 1,000 MG in NACL 0.9% 50 ML IV SCH ×3 (04:57→20:07)
[2023-04-20 06:40] LABS: BASOPHILS # (AUTO) 0.1 K/uL (0.00-0.22); BASOPHILS % (AUTO) 1.2 % (0.0-2.0); EOSINOPHILS # (AUTO) 0.1 K/uL (0-0.4); EOSINOPHILS % (AUTO) 0.7 % (0.0-4.0); HEMATOCRIT 24.5 % (36-52); LYMPHOCYTES # (AUTO) 1.5 K/uL (2.0-11.5); LYMPHOCYTES % (AUTO) 13.1 % (20.5-51.1); MEAN CORPUSCULAR HEMOGLOBIN 28 pg (27-31); MEAN CORPUSCULAR HGB CONC 33 g/dL (33-37); MEAN CORPUSCULAR VOLUME 84.3 fL (80-94); MONOCYTES # (AUTO) 1.3 K/uL (0.8-1.0); MONOCYTES % (AUTO) 10.9 % (1.7-9.3); NEUTROPHILS # (AUTO) 8.7 K/uL (1.8-7.7); NEUTROPHILS % (AUTO) 74.1 % (42.2-75.2); PLATELET COUNT (AUTO) 612 K/uL (140-450); RED CELL DISTRIBUTION WIDTH 17.3 % (11.6-13.7); WHITE BLOOD COUNT (AUTO) 11.8 K/uL (4.8-10.8)
[2023-04-20 07:12] LABS: CALCIUM 8.2 mg/dL (8.5-10.1); CARBON DIOXIDE 27.3 mmol/L (21-32); CREATININE 0.9 mg/dL (0.6-1.3); POTASSIUM 4.3 mmol/L (3.5-5.1); TOTAL BILIRUBIN 0.8 mg/dL (0.0-1.0); TOTAL PROTEIN, SERUM 8.6 g/dL (6.4-8.2)
[2023-04-20 08:00] VITALS: BP 116/66; PULSE 95; RESP 19; TEMP 98.6; O2SAT 96
[2023-04-20] MEDS: NACL 0.9% 1,000 ML IV SCH ×2 (08:30→17:31)
[2023-04-20] MEDS: NEOMYCIN/POLYMYXIN/BACITRACIN 0.9 GM/1 PKT TP SCH ×2 (10:10→20:08)
[2023-04-20 16:00] VITALS: BP 108/52; PULSE 110; RESP 21; TEMP 99.2; O2SAT 98
[2023-04-20] MEDS: MORPHINE SULFATE 2 MG/ML SYR IVP PRN (17:55)
[2023-04-20 20:00] VITALS: BP 105/54; PULSE 109; RESP 19; TEMP 99.5; O2SAT 95
[2023-04-21] MEDS: MORPHINE SULFATE 2 MG/ML SYR IVP PRN ×3 (01:17→23:16)
[2023-04-21] MEDS: MEROPENEM 1,000 MG in NACL 0.9% 50 ML IV SCH ×3 (05:05→21:29)
[2023-04-21 07:13] LABS: ANION GAP 9.5 (8-16); CALCIUM 8.5 mg/dL (8.5-10.1); CARBON DIOXIDE 28.8 mmol/L (21-32); CREATININE 0.7 mg/dL (0.6-1.3); POTASSIUM 4.3 mmol/L (3.5-5.1); TOTAL BILIRUBIN 0.8 mg/dL (0.0-1.0); TOTAL PROTEIN, SERUM 7.9 g/dL (6.4-8.2)
[2023-04-21 08:00] VITALS: BP 114/67; PULSE 91; RESP 18; RESP 21; TEMP 87.9; TEMP 96.8; O2SAT 97; O2SAT 98
[2023-04-21 09:07] LABS: BASOPHILS # (AUTO) 0.1 K/uL (0.00-0.22); BASOPHILS % (AUTO) 1.2 % (0.0-2.0); EOSINOPHILS % (AUTO) 0.3 % (0.0-4.0); HEMATOCRIT 25.2 % (36-52); HEMOGLOBIN 8.3 g/dL (12.0-18.0); LYMPHOCYTES # (AUTO) 1.7 K/uL (2.0-11.5); LYMPHOCYTES % (AUTO) 15.3 % (20.5-51.1); MEAN CORPUSCULAR HEMOGLOBIN 28 pg (27-31); MEAN CORPUSCULAR HGB CONC 33 g/dL (33-37); MEAN CORPUSCULAR VOLUME 84.3 fL (80-94); MONOCYTES # (AUTO) 1.2 K/uL (0.8-1.0); MONOCYTES % (AUTO) 10.3 % (1.7-9.3); NEUTROPHILS # (AUTO) 8.2 K/uL (1.8-7.7); NEUTROPHILS % (AUTO) 72.9 % (42.2-75.2); PLATELET COUNT (AUTO) 648 K/uL (140-450); RED BLOOD CELL COUNT(AUTO) 2.99 MIL/uL (4.20-6.10); RED CELL DISTRIBUTION WIDTH 17.6 % (11.6-13.7); WHITE BLOOD COUNT (AUTO) 11.3 K/uL (4.8-10.8)
[2023-04-21] MEDS: NEOMYCIN/POLYMYXIN/BACITRACIN 0.9 GM/1 PKT TP SCH ×2 (09:38→21:30)
[2023-04-21] MEDS: NACL 0.9% 1,000 ML IV SCH (11:10)
[2023-04-21 15:55] VITALS: O2SAT 96
[2023-04-21 16:00] VITALS: BP 114/67; PULSE 91; RESP 18; TEMP 87.9; O2SAT 96
[2023-04-21 20:00] VITALS: BP 111/47; PULSE 102; RESP 18; TEMP 96.5; O2SAT 94
[2023-04-22] MEDS: NACL 0.9% 1,000 ML IV SCH ×2 (00:30→03:27)
[2023-04-22 04:00] VITALS: BP 107/60; PULSE 90; RESP 18; TEMP 96.5; O2SAT 94
[2023-04-22] MEDS: MEROPENEM 1,000 MG in NACL 0.9% 50 ML IV SCH ×3 (04:48→20:49)
[2023-04-22 08:00] VITALS: RESP 18; TEMP 96.8; O2SAT 97
[2023-04-22 08:15] LABS: BASOPHILS # (AUTO) 0.1 K/uL (0.00-0.22); EOSINOPHILS # (AUTO) 0.1 K/uL (0-0.4); EOSINOPHILS % (AUTO) 0.9 % (0.0-4.0); HEMATOCRIT 29.1 % (36-52); HEMOGLOBIN 9.6 g/dL (12.0-18.0); LYMPHOCYTES # (AUTO) 1.3 K/uL (2.0-11.5); LYMPHOCYTES % (AUTO) 13.3 % (20.5-51.1); MEAN CORPUSCULAR HEMOGLOBIN 28 pg (27-31); MEAN CORPUSCULAR HGB CONC 33 g/dL (33-37); MEAN CORPUSCULAR VOLUME 83.8 fL (80-94); MONOCYTES # (AUTO) 0.9 K/uL (0.8-1.0); MONOCYTES % (AUTO) 9.2 % (1.7-9.3); NEUTROPHILS # (AUTO) 7.5 K/uL (1.8-7.7); NEUTROPHILS % (AUTO) 75.6 % (42.2-75.2); PLATELET COUNT (AUTO) 751 K/uL (140-450); RED BLOOD CELL COUNT(AUTO) 3.47 MIL/uL (4.20-6.10); RED CELL DISTRIBUTION WIDTH 17.1 % (11.6-13.7); WHITE BLOOD COUNT (AUTO) 9.9 K/uL (4.8-10.8)
[2023-04-22 08:38] LABS: ALBUMIN 2.3 g/dL (3.4-5.0); ANION GAP 10.8 (8-16); CALCIUM 8.5 mg/dL (8.5-10.1); CARBON DIOXIDE 30.4 mmol/L (21-32); CREATININE 0.9 mg/dL (0.6-1.3); POTASSIUM 4.2 mmol/L (3.5-5.1); TOTAL PROTEIN, SERUM 9.9 g/dL (6.4-8.2)
[2023-04-22] MEDS: NEOMYCIN/POLYMYXIN/BACITRACIN 0.9 GM/1 PKT TP SCH ×2 (10:32→20:51)
[2023-04-22 16:00] VITALS: BP 106/60; PULSE 63; RESP 18; TEMP 97.9; O2SAT 97
[2023-04-22 20:00] VITALS: BP 110/63; PULSE 110; RESP 18; TEMP 98; O2SAT 95
[2023-04-23] MEDS: MORPHINE SULFATE 2 MG/ML SYR IVP PRN ×2 (00:11→20:34)
[2023-04-23] MEDS: NACL 0.9% 1,000 ML IV SCH ×2 (03:10→06:19)
[2023-04-23 04:00] VITALS: BP 129/71; PULSE 99; RESP 18; TEMP 98.2; O2SAT 94
[2023-04-23] MEDS: MEROPENEM 1,000 MG in NACL 0.9% 50 ML IV SCH ×3 (04:43→20:23)
[2023-04-23 07:24] LABS: BASOPHILS # (AUTO) 0.1 K/uL (0.00-0.22); BASOPHILS % (AUTO) 1.1 % (0.0-2.0); EOSINOPHILS # (AUTO) 0.1 K/uL (0-0.4); EOSINOPHILS % (AUTO) 1.1 % (0.0-4.0); HEMATOCRIT 27.2 % (36-52); HEMOGLOBIN 9.2 g/dL (12.0-18.0); LYMPHOCYTES # (AUTO) 1.5 K/uL (2.0-11.5); LYMPHOCYTES % (AUTO) 17.5 % (20.5-51.1); MEAN CORPUSCULAR HEMOGLOBIN 28 pg (27-31); MEAN CORPUSCULAR HGB CONC 34 g/dL (33-37); MEAN CORPUSCULAR VOLUME 83.4 fL (80-94); MONOCYTES # (AUTO) 0.8 K/uL (0.8-1.0); MONOCYTES % (AUTO) 9.1 % (1.7-9.3); NEUTROPHILS # (AUTO) 5.9 K/uL (1.8-7.7); NEUTROPHILS % (AUTO) 71.2 % (42.2-75.2); PLATELET COUNT (AUTO) 682 K/uL (140-450); RED BLOOD CELL COUNT(AUTO) 3.26 MIL/uL (4.20-6.10); RED CELL DISTRIBUTION WIDTH 17.3 % (11.6-13.7); WHITE BLOOD COUNT (AUTO) 8.3 K/uL (4.8-10.8)
[2023-04-23 07:56] LABS: ANION GAP 12.3 (8-16); CALCIUM 8.7 mg/dL (8.5-10.1); CARBON DIOXIDE 28.8 mmol/L (21-32); CREATININE 0.8 mg/dL (0.6-1.3); POTASSIUM 4.1 mmol/L (3.5-5.1)
[2023-04-23 08:05] LABS: ALBUMIN 2.3 g/dL (3.4-5.0); TOTAL PROTEIN, SERUM 8.8 g/dL (6.4-8.2)
[2023-04-23] MEDS: NEOMYCIN/POLYMYXIN/BACITRACIN 0.9 GM/1 PKT TP SCH ×2 (08:26→20:33)
[2023-04-23 08:58] VITALS: PULSE 98; RESP 16; O2SAT 97
[2023-04-23 08:59] VITALS: BP 116/53; PULSE 98; RESP 16; TEMP 98.7; O2SAT 98
[2023-04-23 10:43] LABS: TOTAL BILIRUBIN 0.9 mg/dL (0.0-1.0)
[2023-04-23 17:05] VITALS: BP 104/60; PULSE 96; RESP 16; TEMP 98.9; O2SAT 97
[2023-04-23 20:00] VITALS: BP 111/59; PULSE 98; RESP 18; TEMP 98; O2SAT 94
[2023-04-24] MEDS: NACL 0.9% 1,000 ML IV SCH ×2 (01:51→19:10)
[2023-04-24] MEDS: MEROPENEM 1,000 MG in NACL 0.9% 50 ML IV SCH ×3 (04:41→22:30)
[2023-04-24 06:11] LABS: BASOPHILS # (AUTO) 0.1 K/uL (0.00-0.22); BASOPHILS % (AUTO) 0.7 % (0.0-2.0); EOSINOPHILS # (AUTO) 0.1 K/uL (0-0.4); EOSINOPHILS % (AUTO) 0.9 % (0.0-4.0); HEMATOCRIT 25.2 % (36-52); HEMOGLOBIN 8.3 g/dL (12.0-18.0); LYMPHOCYTES # (AUTO) 1.5 K/uL (2.0-11.5); LYMPHOCYTES % (AUTO) 20.2 % (20.5-51.1); MEAN CORPUSCULAR HEMOGLOBIN 27 pg (27-31); MEAN CORPUSCULAR HGB CONC 33 g/dL (33-37); MEAN CORPUSCULAR VOLUME 82.8 fL (80-94); MONOCYTES # (AUTO) 0.7 K/uL (0.8-1.0); MONOCYTES % (AUTO) 9.9 % (1.7-9.3); NEUTROPHILS # (AUTO) 4.9 K/uL (1.8-7.7); NEUTROPHILS % (AUTO) 68.3 % (42.2-75.2); PLATELET COUNT (AUTO) 560 K/uL (140-450); RED BLOOD CELL COUNT(AUTO) 3.04 MIL/uL (4.20-6.10); RED CELL DISTRIBUTION WIDTH 17.3 % (11.6-13.7); WHITE BLOOD COUNT (AUTO) 7.2 K/uL (4.8-10.8)
[2023-04-24 07:06] LABS: ALBUMIN 1.9 g/dL (3.4-5.0); ANION GAP 11.3 (8-16); CALCIUM 8.1 mg/dL (8.5-10.1); CARBON DIOXIDE 28.7 mmol/L (21-32); TOTAL BILIRUBIN 0.8 mg/dL (0.0-1.0); TOTAL PROTEIN, SERUM 8.5 g/dL (6.4-8.2)
[2023-04-24 08:00] VITALS: BP 116/58; PULSE 80; RESP 18; TEMP 97.6; O2SAT 97
[2023-04-24] MEDS: NEOMYCIN/POLYMYXIN/BACITRACIN 0.9 GM/1 PKT TP SCH ×2 (10:50→22:21)
[2023-04-24 16:00] VITALS: BP 108/61; PULSE 94; RESP 18; TEMP 99.7; O2SAT 99
[2023-04-24 20:00] VITALS: PULSE 103; RESP 18; TEMP 98.6; O2SAT 94
[2023-04-24 22:37] VITALS: BP 115/63; PULSE 98; RESP 18; TEMP 98.7; O2SAT 93
[2023-04-24] MEDS: MORPHINE SULFATE 2 MG/ML SYR IVP PRN (22:41)
[2023-04-25] MEDS: NACL 0.9% 1,000 ML IV SCH ×3 (04:52→21:41)
[2023-04-25] MEDS: MEROPENEM 1,000 MG in NACL 0.9% 50 ML IV SCH ×3 (04:52→20:37)
[2023-04-25 07:20] LABS: BASOPHILS # (AUTO) 0.1 K/uL (0.00-0.22); EOSINOPHILS # (AUTO) 0.1 K/uL (0-0.4); HEMOGLOBIN 8.5 g/dL (12.0-18.0); LYMPHOCYTES # (AUTO) 1.4 K/uL (2.0-11.5); LYMPHOCYTES % (AUTO) 22.2 % (20.5-51.1); MEAN CORPUSCULAR HEMOGLOBIN 27 pg (27-31); MEAN CORPUSCULAR HGB CONC 33 g/dL (33-37); MONOCYTES # (AUTO) 0.7 K/uL (0.8-1.0); MONOCYTES % (AUTO) 11.7 % (1.7-9.3); NEUTROPHILS # (AUTO) 4.1 K/uL (1.8-7.7); NEUTROPHILS % (AUTO) 63.1 % (42.2-75.2); PLATELET COUNT (AUTO) 525 K/uL (140-450); RED BLOOD CELL COUNT(AUTO) 3.13 MIL/uL (4.20-6.10); RED CELL DISTRIBUTION WIDTH 17.3 % (11.6-13.7); WHITE BLOOD COUNT (AUTO) 6.4 K/uL (4.8-10.8)
[2023-04-25 07:39] LABS: ANION GAP 11.7 (8-16); CALCIUM 8.4 mg/dL (8.5-10.1); CARBON DIOXIDE 29.7 mmol/L (21-32); CREATININE 0.8 mg/dL (0.6-1.3); POTASSIUM 4.4 mmol/L (3.5-5.1); TOTAL BILIRUBIN 0.7 mg/dL (0.0-1.0); TOTAL PROTEIN, SERUM 8.1 g/dL (6.4-8.2)
[2023-04-25 08:00] VITALS: BP 151/57; PULSE 65; RESP 18; RESP 19; TEMP 98.3; TEMP 98.5; O2SAT 95
[2023-04-25] MEDS: NEOMYCIN/POLYMYXIN/BACITRACIN 0.9 GM/1 PKT TP SCH ×2 (10:51→20:37)
[2023-04-25] MEDS: MORPHINE SULFATE 2 MG/ML SYR IVP PRN ×2 (15:01→20:46)
[2023-04-25 16:00] VITALS: BP 127/63; PULSE 81; RESP 18; TEMP 98.4; O2SAT 96
[2023-04-25 20:00] VITALS: BP 110/69; PULSE 106; PULSE 81; RESP 19; TEMP 99.6; O2SAT 94; O2SAT 96
[2023-04-25] MEDS: ACETAMINOPHEN 325 MG TAB PO PRN (20:37)
[2023-04-26] MEDS: MORPHINE SULFATE 2 MG/ML SYR IVP PRN ×3 (03:27→21:36)
[2023-04-26 04:00] VITALS: BP 126/70; PULSE 93; RESP 21; TEMP 98.2; O2SAT 96
[2023-04-26] MEDS: MEROPENEM 1,000 MG in NACL 0.9% 50 ML IV SCH ×3 (04:40→21:24)
[2023-04-26 06:59] LABS: BASOPHILS # (AUTO) 0.1 K/uL (0.00-0.22); BASOPHILS % (AUTO) 0.8 % (0.0-2.0); EOSINOPHILS # (AUTO) 0.1 K/uL (0-0.4); EOSINOPHILS % (AUTO) 1.9 % (0.0-4.0); HEMATOCRIT 27.3 % (36-52); HEMOGLOBIN 8.8 g/dL (12.0-18.0); LYMPHOCYTES # (AUTO) 1.2 K/uL (2.0-11.5); LYMPHOCYTES % (AUTO) 18.9 % (20.5-51.1); MEAN CORPUSCULAR HEMOGLOBIN 27 pg (27-31); MEAN CORPUSCULAR HGB CONC 32 g/dL (33-37); MEAN CORPUSCULAR VOLUME 82.2 fL (80-94); MONOCYTES # (AUTO) 0.6 K/uL (0.8-1.0); MONOCYTES % (AUTO) 9.7 % (1.7-9.3); NEUTROPHILS # (AUTO) 4.4 K/uL (1.8-7.7); NEUTROPHILS % (AUTO) 68.7 % (42.2-75.2); PLATELET COUNT (AUTO) 510 K/uL (140-450); RED BLOOD CELL COUNT(AUTO) 3.32 MIL/uL (4.20-6.10); RED CELL DISTRIBUTION WIDTH 17.5 % (11.6-13.7); WHITE BLOOD COUNT (AUTO) 6.4 K/uL (4.8-10.8)
[2023-04-26 07:00] LABS: CALCIUM 8.2 mg/dL (8.5-10.1); CARBON DIOXIDE 31.3 mmol/L (21-32); CREATININE 0.9 mg/dL (0.6-1.3); POTASSIUM 4.3 mmol/L (3.5-5.1); TOTAL BILIRUBIN 0.6 mg/dL (0.0-1.0)
[2023-04-26 08:00] VITALS: BP 110/64; PULSE 20; PULSE 87; RESP 20; TEMP 97.3; O2SAT 96
[2023-04-26] MEDS: NEOMYCIN/POLYMYXIN/BACITRACIN 0.9 GM/1 PKT TP SCH ×2 (09:26→21:25)
[2023-04-26 16:00] VITALS: BP 125/68; PULSE 20; RESP 20; TEMP 97.3; O2SAT 97
[2023-04-26] MEDS: NACL 0.9% 1,000 ML IV SCH (16:37)
[2023-04-26 20:00] VITALS: BP 119/71; PULSE 87; PULSE 93; RESP 18; TEMP 98.5; TEMP 98.9; O2SAT 93
[2023-04-27] MEDS: NACL 0.9% 1,000 ML IV SCH ×2 (00:30→12:51)
[2023-04-27 04:00] VITALS: BP 119/67; PULSE 89; RESP 18; TEMP 97.2; O2SAT 93
[2023-04-27] MEDS: MEROPENEM 1,000 MG in NACL 0.9% 50 ML IV SCH ×3 (05:02→22:35)
[2023-04-27] MEDS: MORPHINE SULFATE 2 MG/ML SYR IVP PRN ×2 (05:16→23:01)
[2023-04-27 07:07] LABS: CALCIUM 8.1 mg/dL (8.5-10.1); CARBON DIOXIDE 28.9 mmol/L (21-32); CREATININE 0.9 mg/dL (0.6-1.3); POTASSIUM 3.9 mmol/L (3.5-5.1); TOTAL BILIRUBIN 0.6 mg/dL (0.0-1.0); TOTAL PROTEIN, SERUM 8.8 g/dL (6.4-8.2)
[2023-04-27 08:00] VITALS: BP 112/66; PULSE 83; PULSE 87; RESP 18; RESP 20; TEMP 97.2; TEMP 97.3; O2SAT 83; O2SAT 96
[2023-04-27 08:10] LABS: BASOPHILS # (AUTO) 0.1 K/uL (0.00-0.22); BASOPHILS % (AUTO) 0.8 % (0.0-2.0); EOSINOPHILS # (AUTO) 0.1 K/uL (0-0.4); EOSINOPHILS % (AUTO) 2.1 % (0.0-4.0); HEMATOCRIT 26.4 % (36-52); HEMOGLOBIN 8.6 g/dL (12.0-18.0); LYMPHOCYTES # (AUTO) 1.4 K/uL (2.0-11.5); LYMPHOCYTES % (AUTO) 20.9 % (20.5-51.1); MEAN CORPUSCULAR HEMOGLOBIN 27 pg (27-31); MEAN CORPUSCULAR HGB CONC 33 g/dL (33-37); MEAN CORPUSCULAR VOLUME 82.6 fL (80-94); MONOCYTES # (AUTO) 0.6 K/uL (0.8-1.0); MONOCYTES % (AUTO) 9.1 % (1.7-9.3); NEUTROPHILS # (AUTO) 4.6 K/uL (1.8-7.7); NEUTROPHILS % (AUTO) 67.1 % (42.2-75.2); PLATELET COUNT (AUTO) 492 K/uL (140-450); RED CELL DISTRIBUTION WIDTH 17.1 % (11.6-13.7); WHITE BLOOD COUNT (AUTO) 6.8 K/uL (4.8-10.8)
[2023-04-27] MEDS: NEOMYCIN/POLYMYXIN/BACITRACIN 0.9 GM/1 PKT TP SCH ×2 (09:28→23:00)
[2023-04-27 20:00] VITALS: BP 122/70; PULSE 85; RESP 18; TEMP 98; O2SAT 95
[2023-04-28] MEDS: NACL 0.9% 1,000 ML IV SCH ×2 (03:10→16:48)
[2023-04-28 04:00] VITALS: BP 112/60; PULSE 81; RESP 18; TEMP 98.7; O2SAT 96
[2023-04-28] MEDS: MEROPENEM 1,000 MG in NACL 0.9% 50 ML IV SCH ×2 (05:37→13:41)
[2023-04-28 06:41] LABS: BASOPHILS % (AUTO) 0.7 % (0.0-2.0); EOSINOPHILS # (AUTO) 0.2 K/uL (0-0.4); EOSINOPHILS % (AUTO) 2.6 % (0.0-4.0); HEMATOCRIT 28.5 % (36-52); HEMOGLOBIN 9.2 g/dL (12.0-18.0); LYMPHOCYTES # (AUTO) 1.2 K/uL (2.0-11.5); LYMPHOCYTES % (AUTO) 17.3 % (20.5-51.1); MEAN CORPUSCULAR HEMOGLOBIN 27 pg (27-31); MEAN CORPUSCULAR HGB CONC 32 g/dL (33-37); MEAN CORPUSCULAR VOLUME 82.4 fL (80-94); MONOCYTES # (AUTO) 0.7 K/uL (0.8-1.0); MONOCYTES % (AUTO) 10.5 % (1.7-9.3); NEUTROPHILS # (AUTO) 4.7 K/uL (1.8-7.7); NEUTROPHILS % (AUTO) 68.9 % (42.2-75.2); PLATELET COUNT (AUTO) 503 K/uL (140-450); RED BLOOD CELL COUNT(AUTO) 3.46 MIL/uL (4.20-6.10); RED CELL DISTRIBUTION WIDTH 17.2 % (11.6-13.7); WHITE BLOOD COUNT (AUTO) 6.8 K/uL (4.8-10.8)
[2023-04-28 06:50] LABS: ALBUMIN 2.2 g/dL (3.4-5.0); ANION GAP 9.1 (8-16); CALCIUM 8.3 mg/dL (8.5-10.1); CARBON DIOXIDE 29.8 mmol/L (21-32); CREATININE 0.8 mg/dL (0.6-1.3); POTASSIUM 3.9 mmol/L (3.5-5.1); TOTAL BILIRUBIN 0.7 mg/dL (0.0-1.0); TOTAL PROTEIN, SERUM 9.5 g/dL (6.4-8.2)
[2023-04-28 08:00] VITALS: BP 108/51; PULSE 87; PULSE 98; RESP 20; TEMP 97; TEMP 97.3; O2SAT 93; O2SAT 96
[2023-04-28] MEDS: NEOMYCIN/POLYMYXIN/BACITRACIN 0.9 GM/1 PKT TP SCH (09:17)
== END 2023-04-28 17:50 | disposition home or self-care (01) | DRG 710 ==
LOC: MED 10:28 → MMU 17:03 → MTU 20:01
PROVIDERS: ADMIT Student in an Organized Health Care Education/Training Program; ATTEND Student in an Organized Health Care Education/Training Program
PROC: 0FT44ZZ Resection of Gallbladder, Percutaneous Endoscopic Approach (ICD-10-PCS; principal; 2023-04-09 13:00)
PROC: 30233N1 Transfusion of Nonautologous Red Blood Cells into Peripheral Vein, Percutaneous Approach (ICD-10-PCS; 2023-04-11)
PROC: 0F944ZX Drainage of Gallbladder, Percutaneous Endoscopic Approach, Diagnostic (ICD-10-PCS; 2023-04-17)
DX: A41.9 Sepsis, unspecified organism (principal); N17.0 Acute kidney failure with tubular necrosis; K65.1 Peritoneal abscess; K81.0 Acute cholecystitis; E44.0 Moderate protein-calorie malnutrition; R65.20 Severe sepsis without septic shock; D69.6 Thrombocytopenia, unspecified; K82.A1 Gangrene of gallbladder in cholecystitis; Z68.43 Body mass index [BMI] 50.0-59.9, adult; Z20.822 Contact with and (suspected) exposure to COVID-19; E87.6 Hypokalemia; Z90.49 Acquired absence of other specified parts of digestive tract; Z79.899 Other long term (current) drug therapy; Z21 Asymptomatic human immunodeficiency virus [HIV] infection status; B96.20 Unspecified Escherichia coli [E. coli] as the cause of diseases classified elsewhere
CPT/HCPCS: 36415; 70450; 71045; 71260; 74150; 76705; 80048; 80053; 80076; 81001; 83605; 83690; 83735; 85025; 85610; 85651; 85730; 86140; 86308; 86886; 86900; 86901; 86920; 87040; 87070; 87075; 87081; 88304; 93005; 96365; 96367; 96372; 99291; J0330; J0696; J1100; J1170; J1885; J1956; J2001; J2185; J2250; J2270; J2310; J2405; J2543; J2704; J2710; J3010; J3475; J3480; J3490; J7030; J7060; J7120; P9016; Q0092; Q9967

== ENCOUNTER 2023-07-22 09:52 | Emergency (ER) | payer MEDICAID ==
[~2023-07-22] VITALS: Ht 170.2 cm; Wt 136.1 kg
[~2023-07-22 09:52] MED LIST changes: +ACET-1182 PO; +METR-435 PO; +SULF-58 PO
[2023-07-22 10:02] VITALS: BP 145/75; PULSE 86; RESP 18; TEMP 98.3; O2SAT 99
[2023-07-22 16:30] VITALS: BP 142/75; PULSE 84; RESP 18; TEMP 98.2; O2SAT 100
[2023-07-22 16:48] LABS: BASOPHILS # (AUTO) 0.1 K/uL (0.00-0.22); BASOPHILS % (AUTO) 0.9 % (0.0-2.0); EOSINOPHILS # (AUTO) 0.1 K/uL (0-0.4); HEMATOCRIT 40.6 % (36-52); HEMOGLOBIN 13.2 g/dL (12.0-18.0); LYMPHOCYTES # (AUTO) 2.6 K/uL (2.0-11.5); MEAN CORPUSCULAR HEMOGLOBIN 26 pg (27-31); MEAN CORPUSCULAR HGB CONC 33 g/dL (33-37); MEAN CORPUSCULAR VOLUME 80.8 fL (80-94); MONOCYTES # (AUTO) 0.6 K/uL (0.8-1.0); NEUTROPHILS # (AUTO) 3.5 K/uL (1.8-7.7); NEUTROPHILS % (AUTO) 51.1 % (42.2-75.2); PLATELET COUNT (AUTO) 292 K/uL (140-450); RED BLOOD CELL COUNT(AUTO) 5.02 MIL/uL (4.20-6.10); RED CELL DISTRIBUTION WIDTH 18.3 % (11.6-13.7); WHITE BLOOD COUNT (AUTO) 6.9 K/uL (4.8-10.8)
[2023-07-22 17:00] LABS: ANION GAP 12.3 (8-16); CALCIUM 8.6 mg/dL (8.5-10.1); CARBON DIOXIDE 26.8 mmol/L (21-32); CREATININE 0.8 mg/dL (0.6-1.3); POTASSIUM 4.1 mmol/L (3.5-5.1)
[2023-07-22 17:07] LABS: ALBUMIN 3.5 g/dL (3.4-5.0); BILIRUBIN,DIRECT 0.1 mg/dL (0.0-0.3); TOTAL BILIRUBIN 0.2 mg/dL (0.0-1.0); TOTAL PROTEIN, SERUM 8.3 g/dL (6.4-8.2)
[2023-07-22] MEDS ORDERED: VIB100 PO (19:30)
== END 2023-07-22 19:41 | disposition home or self-care (01) ==
LOC: MED 09:52
DX: R22.1 Localized swelling, mass and lump, neck (principal); Z79.899 Other long term (current) drug therapy
CPT/HCPCS: 36415; 70498; 76536; 80048; 80076; 85025; 99285; Q0092; Q9967